=== PATIENT | male | born 1970 | race Caucasian/White ===

== ENCOUNTER 2016-12-15 15:06 | Emergency (ER) | payer SELFPAY ==
[~2016-12-15] VITALS: Ht 167.6 cm; Wt 72.0 kg
[2016-12-15] MEDS ORDERED: SODIUM CHLORIDE 0.9% 1,000 ML IV ONE (17:35)
[2016-12-15 17:57] LABS: CHLORIDE 105 mEq/L (98-107)
[2016-12-15 17:59] LABS: HEMATOCRIT. 46.1 % (42.0-52.0); HEMOGLOBIN. 15.4 g/dL (14.0-18.0); MEAN CORPUSCULAR HEMOGLOBIN 32.3 pg (28.0-32.0); MEAN CORPUSCULAR VOLUME 96.6 fL (80.0-94.0); MEAN PLATELET VOLUME 9.1 fl (7.4-10.4); PLATELET 109 x1000/uL (130-400); RED BLOOD CELL COUNT 4.77 mill/uL (4.7-6.1); RED CELL DISTRIBUTION WIDTH 15.1 % (11.6-14.6)
[2016-12-15 18:08] LABS: CARBON DIOXIDE 32 mEq/L (21-32)
[2016-12-15 18:18] LABS: ETHANOL BLOOD 550 mg/dL
[2016-12-15 18:55] LABS: PLATELET ESTIMATE DECREASED
[2016-12-15 19:50] VITALS: BP 137/93
== END 2016-12-15 20:22 | disposition home or self-care (01) ==
LOC: ER 16:22
DX: F10.129 Alcohol abuse with intoxication, unspecified (principal)
CPT/HCPCS: 36415; 80053; 85025; 96360; 99284; G0482; J7030